=== PATIENT | male | born 1985 | race Caucasian/White ===

== ENCOUNTER 2019-12-10 12:39 | Outpatient (CLI) | payer MEDICAID | END 2019-12-10 12:40 | disposition short-term general hospital (02) | LOC: EMS 12:39 | PROVIDERS: ATTEND Surgery | DX: R05 Cough (principal); R50.9 Fever, unspecified; R52 Pain, unspecified | CPT/HCPCS: A0425; A0429 ==

== ENCOUNTER 2019-12-14 14:13 | Outpatient (CLI) | payer MEDICAID | END 2019-12-14 14:14 | disposition short-term general hospital (02) | LOC: EMS 14:13 | PROVIDERS: ATTEND Surgery | DX: R06.00 Dyspnea, unspecified (principal); R07.1 Chest pain on breathing | CPT/HCPCS: A0425; A0429; A0999 ==